=== PATIENT | female | born 1995 | race African-American/Black ===

== ENCOUNTER 2018-03-29 13:45 | Emergency (ER) | payer SELFPAY ==
[~2018-03-29] VITALS: Ht 165.1 cm; Wt 59.0 kg
[2018-03-29] MEDS ORDERED: MORPHINE SULFATE 10 MG/ML CPJ IM ONE (16:30)
[2018-03-29 17:35] LABS: CLARITY URINE CLEAR (CLEAR); COLOR URINE YELLOW (YELLOW); KETONES URINE NEGATIVE (NEGATIVE); LEUKOCYTE ESTERASE URINE NEGATIVE (NEGATIVE); NITRITE URINE NEGATIVE (NEGATIVE); OCCULT BLOOD URINE 1+ (NEGATIVE); PH URINE 5.5 (4.5-8.0); PROTEIN URINE NEGATIVE (NEGATIVE); SPECIFIC GRAVITY URINE 1.029 (1.005-1.030)
[2018-03-29 18:30] VITALS: BP 123/90
== END 2018-03-29 19:29 | disposition home or self-care (01) ==
LOC: ER 13:45
DX: N76.0 Acute vaginitis (principal); G89.29 Other chronic pain; M54.9 Dorsalgia, unspecified; M79.671 Pain in right foot; F41.9 Anxiety disorder, unspecified; F32.9 Major depressive disorder, single episode, unspecified; A56.8 Sexually transmitted chlamydial infection of other sites; A54.9 Gonococcal infection, unspecified; Z98.890 Other specified postprocedural states
CPT/HCPCS: 81003; 87210; 96372; 99284; J2270